=== PATIENT | female | born 1965 | race Caucasian/White ===

== ENCOUNTER 2016-09-15 07:32 | Emergency (ER) | payer OTHER ==
[~2016-09-15] VITALS: Ht 162.6 cm; Wt 90.0 kg
[~2016-09-15 07:32] MED LIST: ALBU18HF IH; LORATADINE PO; MECLIZINE PO; NAPR550T2 PO; OMEP20CA16 PO
[2016-09-15 07:40] VITALS: Ht 162.6 cm; Wt 90.0 kg
[2016-09-15 08:20] LABS: URINE BLOOD (Dip) POC Trace-intact (NEGATIVE)
--- NOTE | 2016-09-15 08:30 | ERD ---
ER Documentation Chief Complaint Date/Time DATE: 09/15/16 TIME: 08:27 Chief Complaint headcahe , neck pain , back pain s/p slip and fall yesterday HPI This 48-year-old female who presents to the emergency department today complaining of headache, neck and back pain after falling yesterday. Patient states that she was getting out of her car when she fell backwards. She is unsure why she fell. States she is unsure if she lost consciousness. States she has some dizziness. States she took Tylenol for the pain. Denies any medical history. Denies any fevers or chills, dysuria. ROS All systems reviewed and are negative except as per history of present illness. Medications Home Meds Active Scripts Docusate Sodium* (Colace*) 100 Mg Capsule, 100 MG PO TID, #30 CAP Prov:MAL MAYO PA-C 09/15/16 Cyclobenzaprine Hcl* (Cyclobenzaprine Hcl*) 10 Mg Tablet, 10 MG PO QHS, #7 TAB Prov:MAL MAYO PA-C 09/15/16 Hydrocodone/Acetaminophen (Muncy 5-325 Tablet) 1 Each Tablet, 1 TAB PO Q6H Y for PAIN, #12 TAB Prov:MAL MAYO PA-C 09/15/16 Nitrofurantoin Monohyd Macrocr* (Macrobid*) 100 Mg Capsr, 100 MG PO BID for 7 Days, CAP Prov:MAL MAYO PA-C 09/15/16 Reported Medications Albuterol Sulfate* (Ventolin HFA*) 18 Gm Hfa.aer.ad, 2 PUFF IH Q4H Y for WHEEZING AND RESP DISTRESS, EA 09/10/14 Naproxen* (Naproxen*) 550 Mg Tablet, 550 MG PO BID Y for PAIN, TAB 09/10/14 [Meclizine] No Conflict Check, PO 09/10/14 [Loratadine] No Conflict Check, PO 09/10/14 Omeprazole* (Omeprazole*) 20 Mg Capsule.dr, 20 MG PO DAILY, CAP 09/10/14 Allergies Allergies: Coded Allergies: Penicillins (Unverified Allergy, Unknown, 09/10/14) PMhx/Soc History of Surgery: Yes (INGUINAL HERNIA REPAIR, HYSTERECTOMY, UTERINE ABLATION , OVARY SURG) Anesthesia Reaction: No Hx Neurological Disorder: No Hx Respiratory Disorders: Yes (ASHTMA) Hx Cardiac Disorders: No Hx Alcohol Use: Yes (OCCASIONAL) Hx Substance Use: No Hx Tobacco Use: No Physical Exam Vitals Vital Signs Date Time Temp Pulse Resp B/P Pulse Ox O2 Delivery O2 Flow Rate FiO2 09/15/16 07:40 98.0 74 16 131/62 99 Physical Exam Const: No acute distress Head: Small posterior aspect occipital hematoma with evidence of abrasion. No lacerations. Eyes: Normal Conjunctiva. PERRLA. EOM intact. ENT: No hemotympanum. No epistaxis. Throat no erythema. Neck: Full range of motion..~ No meningismus. Tender to palpation midline and right-sided paraspinal Resp: Clear to auscultation bilaterally Cardio: Regular rate and rhythm, no murmurs Abd: Soft, non tender, non distended. Normal bowel sounds Skin: No petechiae or rashes Back: Lumbar and sacral spine midline tenderness and bilateral paraspinal tenderness. Pulses 2+. Distal neurovascularly intact. Negative straight leg raise. Ext: No cyanosis, or edema Neur: Awake and alert Psych: Normal Mood and Affect Result Diagram: 09/15/16 0840 09/15/16 0840 Results 24 hrs Laboratory Tests Test 09/15/16 08:20 09/15/16 08:40 Bedside Urine Blood Trace-intact Bedside Urine Glucose (UA) Negative Bedside Urine Ketones (LAB) Negative Bedside Urine Leukocyte Esterase (L 1+ Bedside Urine Nitrite (LAB) Negative Bedside Urine Protein (LAB) Negative Bedside Urine pH (LAB) 5.5 Alanine Aminotransferase (ALT/SGPT) 38IU/L Albumin 3.9g/dl Albumin/Globulin Ratio 1.08 Alkaline Phosphatase 164IU/L Anion Gap 16 Aspartate Amino Transf (AST/SGOT) 32IU/L Basophils # 0.010^3/ul Basophils % 0.5% Blood Morphology Comment Blood Urea Nitrogen 16mg/dl Calcium Level 9.1mg/dl Carbon Dioxide Level 28mmol/L Chloride Level 106mmol/L Creatinine 0.57mg/dl Direct Bilirubin 0.00mg/dl Eosinophils # 0.110^3/ul Eosinophils % 2.1% Globulin 3.60g/dl Glucose Level 100mg/dl Hematocrit 35.6% Hemoglobin 11.5g/dl Indirect Bilirubin 0.6mg/dl Lymphocytes # 2.010^3/ul Lymphocytes % 28.1% Mean Corpuscular Hemoglobin 25.2pg Mean Corpuscular Hemoglobin Concent 32.4g/dl Mean Corpuscular Volume 77.8fl Mean Platelet Volume 7.6fl Monocytes # 0.410^3/ul Monocytes % 5.5% Neutrophils # 4.610^3/ul Neutrophils % 63.8% Nucleated Red Blood Cells # 0.010^3/ul Nucleated Red Blood Cells % 0.0/100WBC Platelet Count 21950^3/UL Potassium Level 4.4mmol/L Red Blood Count 4.5710^6/ul Red Cell Distribution Width 14.3% Sodium Level 146mmol/L Total Bilirubin 0.6mg/dl Total Protein 7.5g/dl White Blood Count 7.110^3/ul Patient: DOUG NIETO : 1965 Age: 51 Sex: F MR #: [id number] DOS: 09/15/16 0000 Ordering MD: MAL MAYO PA-C Location: [facility], [facility] Room/Bed: PROCEDURE: CT head without Contrast CLINICAL INDICATION: Status post fall, dizziness, syncope, pain in back of head TECHNIQUE: Transaxial images were made through the head on a multi-slice scanner without intravenous contrast. Coronal and sagittal images were subsequently reformatted. One or more of the following dose reduction techniques were used: - Automated exposure control. - Adjustment of the mA and/or kV according to patient size. - Use of iterative reconstruction technique. Radiation dose: CTDIvol = 44.73 mGy; DLP = 630.20 mGy-cm. COMPARISON: None FINDINGS: The calvarium appears intact. The mastoid air cells and paranasal sinuses are well-aerated.. The ventricles are normal in size and there is no midline shift. No intracranial bleed, mass, or extra-axial fluid collection is identified. There is good sommer-white matter differentiation. IMPRESSION: Unremarkable noncontrast enhanced CT scan of the head. R Kanika, Physician Date Time Electronically viewed and signed by Physician Flavio on 09/15/2016 09:29 RH/ CC: MAL MAYO PA-C Patient: DOUG NIETO : 1965 Age: 51 Sex: F MR #: [id number] DOS: 09/15/16 0000 Ordering MD: MAL MAYO PA-C Location: [facility], [facility]–1983 Room/Bed: PROCEDURE: CT C-Spine without Contrast CLINICAL INDICATION: Fall TECHNIQUE: Transaxial images were obtained through the cervical spine on a multi sliced scanner without contrast. Sagittal and coronal re-formations were subsequently reformatted. One or more of the following dose reduction techniques were used: - Automated exposure control. - Adjustment of the mA and/or kV according to patient size. - Use of iterative reconstruction technique. Radiation dose: CTDIvol = 22.08 mGy; DLP = 394.54 mGy-cm. COMPARISON: None FINDINGS: Osseous structures: Appear intact with no fracture identified. There is a nonaggressive 4 mm lucency within the left anterior C4 vertebral body and a 3 mm nonaggressive hypodensity within the right superior posterior C5 vertebral body which may represent cysts. Alignment: There is straightening of the normal lordotic curvature to the cervical spine with no subluxation evident. Disk spaces, endplates, and facet joints: Are well maintained. No significant disk bulge or herniation is identified. There is no significant stenosis to the central canal hour to a nerve root canal. There is mild anterior spurring off the anterior endplates at C5-6. Soft tissues: Are unremarkable. IMPRESSION: 1. No cervical fracture or subluxation is evident. 2. Straightening of the normal lordotic curvature to the cervical spine with mild anterior spurring off the end plates is C5-C6. 3. Nonaggressive lucencies suspicious for cysts are evident. 1 measuring 4 mm is seen within the left anterior C4 vertebral body and 1 measuring 3 mm is seen within the right superior posterior C5 vertebral body. Physician Flavio Date Time Electronically viewed and signed by Physician Flavio on 09/15/2016 09:35 RH/ CC: MAL MAYO PA-C Patient: DOUG NIETO : 1965 Age: 51 Sex: F MR #: [id number] DOS: 09/15/16 0000 Ordering MD: MAL MAYO PA-C Location: [facility] Room/Bed: PROCEDURE: XR Lumbar Spine. CLINICAL INDICATION: Post fall. Low back pain. TECHNIQUE: Three views of the lumbar spine are available for review COMPARISON: None available FINDINGS: The normal lumbar lordosis is preserved. Alignment is intact. No acute fracture or dislocation is seen. The vertebral body heights are all normal. There are mild degenerative changes of lumbar spine, mainly at L5-S1. IMPRESSION: 1. No acute fracture or subluxation. 2. Mild degenerative changes of lumbar spine, most pronounced at L5-S1. RPTAT: HFN .Tyler Deng MD, MD Date Time Electronically viewed and signed by .Tyler Deng MD, MD on 09/15/2016 10: 14 .N/ CC: MAL MAYO PA-C Patient: DOUG NIETO : 1965 Age: 51 Sex: F MR #: [id number] DOS: 09/15/16 0000 Ordering MD: MAL MAYO PA-C Location: [facility] Room/Bed: PROCEDURE: XR Sacrum and Coccyx. CLINICAL INDICATION: Sacrococcygeal pain TECHNIQUE: 3 views of the sacrum and coccyx were performed. COMPARISON: No prior studies are available for comparison. FINDINGS: There is normal sacral and coccygeal mineralization and alignment. No fracture or subluxation is seen. The sacroiliac joints appear normal. The soft tissues are unremarkable. The coccygeal elements are intact and in normal alignment. No fracture or dislocation is seen. 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 IMPRESSION: 1. Unremarkable x-ray examination of the sacrum and coccyx. RPTAT: HMJB .Judd Bustos MD, Date Time Electronically viewed and signed by .Judd Bustos MD, on 09/15/2016 10:08 .B/ CC: MAL MAYO PA-C Procedures/MDM This is a 51-year-old female who presents to the emergency department today after sustaining a fall yesterday. Patient was unsure if she lost consciousness and she was unable to tell me that this was a mechanical fall and therefore did obtain laboratory work as well as imaging and an EKG EKG read and interpreted by Dr. Torrez rate [address] elevation. No QT prolongation. Normal sinus rhythm. Low suspicion for acute OH, PE, pericarditis. Laboratory work no elevated white blood cell count. Patient's hemoglobin and hematocrit is mildly decreased. Sodium is mildly elevated otherwise electro lites are within normal limits. Liver functions within normal limits. Glucose is within normal limits. UA shows 1+ leukocyte Estrace Urine test is negative Head CT noncontrast is unremarkable. No evidence of intracranial bleed, mass effect or midline shift. Cervical spine CT shows no cervical fracture subluxation. There is straightening of the normal lordotic curve with mild anterior spurring of endplate of C5 and C6. There are not aggressive lucency suspicious for cyst evident. One measures 4 L seen within the left anterior C4 vertebral body and one measuring 3 mm seen within the right. Posterior C5 vertebral body. Lumbar spine x-rays showed no acute fracture or subluxation. There is mild degenerative changes of the lumbar spine most pronounced at L5 and S1. The [place] body heights are all normal. Sacrum and coccyx are unremarkable. There is degenerative osteoarthrosis of the pubis symphysis. Soft tissues are unremarkable. There is normal alignment. I have explained all result to the patient. Patient had a fall of uncertain etiology however it may be related to urinary tract infection or symptoms of feeling dizzy. The suspicion for cardiac cause. Patient is afebrile and otherwise well-appearing. She is not hypotensive. I have low suspicion for anemia or orthostatic hypotension. Patient declined stronger pain medication here in the emergency department as she stated that she needs to drive to get to her work this morning. Patient was given a prescription for Muncy, Colace, Flexeril and Macrobid to treat her urinary tract infection. At this time the patient is stable for discharge and outpatient management. Patient should follow up with their PCP in the next 1-2 days. They may return to the emergency department sooner for any persistent or worsening of symptoms. Patient understood and agreed with the plan. Discussed the patient with Dr. Torrez and he is in agreement with the plan. Departure Diagnosis: Primary Impression: Fall Encounter type: initial encounter Qualified Code: W19.XXXA - Fall, initial encounter Additional Impression: UTI (urinary tract infection) Urinary tract infection type: site unspecified Hematuria presence: with hematuria Qualified Code: N39.0 - Urinary tract infection with hematuria, site unspecified Condition: Fair MAL MAYO PA-C Sep 15, 2016 08:30
[2016-09-15 09:16] LABS: BASOPHILS % 0.5 % (0.0-2.0); EOSINOPHILS # 0.1 10^3/ul (0.0-0.5); EOSINOPHILS % 2.1 % (0.0-7.0); HEMATOCRIT 35.6 % (37.0-47.0); HEMOGLOBIN 11.5 g/dl (12.0-16.0); LYMPHOCYTES % 28.1 % (15.0-51.0); MEAN CORPUSCULAR HEMOGLOBIN 25.2 pg (29.0-33.0); MEAN CORPUSCULAR HGB CONC 32.4 g/dl (32.0-37.0); MEAN CORPUSCULAR VOLUME 77.8 fl (82.0-101.0); MEAN PLATELET VOLUME 7.6 fl (7.4-10.4); MONOCYTE # 0.4 10^3/ul (0.3-0.9); MONOCYTES % 5.5 % (0.0-11.0); NEUTROPHIL # 4.6 10^3/ul (1.6-7.5); NEUTROPHILS % 63.8 % (39.0-77.0); PLATELET COUNT 284 10^3/UL (140-440); RED BLOOD COUNT 4.57 10^6/ul (4.20-5.40); RED CELL DISTRIBUTION WIDTH 14.3 % (11.5-14.5); UNCORRECTED WBC 7.1 10^3/ul (4.8-10.8); WHITE BLOOD COUNT 7.1 10^3/ul (4.8-10.8)
[2016-09-15 09:18] LABS: ALBUMIN 3.9 g/dl (3.3-4.9)
[2016-09-15 09:19] LABS: POTASSIUM 4.4 mmol/L (3.5-5.1)
[2016-09-15 09:20] LABS: CONDITION 1; LH ANALYZER COMMENTS 1
[2016-09-15 09:21] LABS: ALBUMIN/GLOBULIN RATIO 1.08; BILIRUBIN,INDIRECT 0.6 mg/dl (0-1.1); BILIRUBIN,TOTAL 0.6 mg/dl (0.2-1.3); CREATININE 0.57 mg/dl (0.44-1.00); TOTAL PROTEIN 7.5 g/dl (6.1-8.1)
[2016-09-15 09:22] LABS: CALCIUM 9.1 mg/dl (8.4-10.2)
--- NOTE | 2016-09-15 09:29 | RADRPT ---
PROCEDURE: CT head without Contrast CLINICAL INDICATION: Status post fall, dizziness, syncope, pain in back of head TECHNIQUE: Transaxial images were made through the head on a multi-slice scanner without intraveno us contrast. Coronal and sagittal images were subsequently reformatted. One or more of the following dose reduction techniques were used: - Automated exposure control. - Adjustment of the mA and/or kV according to patient size. - Use of iterative reconstruction technique. Radiation dose: CTDIvol = 44.73 mGy; DLP = 630.20 mGy-cm. COMPARISON: None FINDINGS: The calvarium appears intact. The mastoid air cells and paranasal sinuses are well-aerated.. The ventricles are normal in size and there is no midline shift. No intracranial bleed, mass, or extra-axial fluid collection is identified. There is good sommer-white matter differentiation. IMPRESSION: Unremarkable noncontrast enhanced CT scan of the head. Physician Flavio Date Time Electronically viewed and signed by Physician Flavio on 09/15/2016 09:29 /
--- NOTE | 2016-09-15 09:36 | RADRPT ---
PROCEDURE: CT C-Spine without Contrast CLINICAL INDICATION: Fall TECHNIQUE: Transaxial images were obtained through the cervical spine on a multi sliced scanner wit hout contrast. Sagittal and coronal re-formations were subsequently reformatted. One or more of the following dose reduction techniques were used: - Automated exposure control. - Adjustment of the mA and/or kV according to patient size. - Use of iterative reconstruction technique. Radiation dose: CTDIvol = 22.08 mGy; DLP = 394.54 mGy-cm. COMPARISON: None FINDINGS: Osseous structures: Appear intact with no fracture identified. There is a nonaggressive 4 mm lucency within the left anterior C4 vertebral body and a 3 mm nonaggressive hypodensity within the right muro perior posterior C5 vertebral body which may represent cysts. Alignment: There is straightening of the normal lordotic curvature to the cervical spine with no sub luxation evident. Disk spaces, endplates, and facet joints: Are well maintained. No significant disk bulge or herniat ion is identified. There is no significant stenosis to the central canal hour to a nerve root canal. There is mild anterior spurring off the anterior endplates at C5-6. Soft tissues: Are unremarkable. IMPRESSION: 1. No cervical fracture or subluxation is evident. 2. Straightening of the normal lordotic curvature to the cervical spine with mild anterior spurring off the end plates is C5-C6. 3. Nonaggressive lucencies suspicious for cysts are evident. 1 measuring 4 mm is seen within the l eft anterior C4 vertebral body and 1 measuring 3 mm is seen within the right superior posterior C5 v ertebral body. Physician Flavio Date Time Electronically viewed and signed by Physician Flavio on 09/15/2016 09:35 /
--- NOTE | 2016-09-15 10:08 | RADRPT ---
PROCEDURE: XR Sacrum and Coccyx. CLINICAL INDICATION: Sacrococcygeal pain TECHNIQUE: 3 views of the sacrum and coccyx were performed. COMPARISON: No prior studies are available for comparison. FINDINGS: There is normal sacral and coccygeal mineralization and alignment. No fracture or subluxation is see n. The sacroiliac joints appear normal. The soft tissues are unremarkable. The coccygeal elements ar e intact and in normal alignment. No fracture or dislocation is seen. Degenerative osteoarthrosis o f the pubis symphysis is identified. IMPRESSION: 1. Unremarkable x-ray examination of the sacrum and coccyx. RPTAT: HMJB .Judd Busots MD, Date Time Electronically viewed and signed by .Judd Bustos MD, on 09/15/2016 10:08 .B/
--- NOTE | 2016-09-15 10:14 | RADRPT ---
PROCEDURE: XR Lumbar Spine. CLINICAL INDICATION: Post fall. Low back pain. TECHNIQUE: Three views of the lumbar spine are available for review COMPARISON: None available FINDINGS: The normal lumbar lordosis is preserved. Alignment is intact. No acute fracture or dislocation is seen. The vertebral body heights are all normal. There are mild degenerative changes of lumbar spine, main ly at L5-S1. IMPRESSION: 1. No acute fracture or subluxation. 2. Mild degenerative changes of lumbar spine, most pronounced at L5-S1. RPTAT: HFN .Tyler Deng MD, Date Time Electronically viewed and signed by .Tyler Deng MD, on 09/15/2016 10:14 .N/
[2016-09-15] MEDS ORDERED: NITR-58 PO (10:33)
[2016-09-15] MEDS ORDERED: HYDR-906 PO (10:34)
[2016-09-15] MEDS ORDERED: DOCU-144 PO (10:35)
[2016-09-15] MEDS ORDERED: CYCL-319 PO (10:35)
== END 2016-09-15 10:44 | disposition home or self-care (01) ==
LOC: FTE 07:32
DX: S09.90XA Unspecified injury of head, initial encounter (principal); S19.9XXA Unspecified injury of neck, initial encounter; S39.92XA Unspecified injury of lower back, initial encounter; N39.0 Urinary tract infection, site not specified; J45.909 Unspecified asthma, uncomplicated; R42 Dizziness and giddiness; W18.39XA Other fall on same level, initial encounter; Y92.810 Car as the place of occurrence of the external cause
CPT/HCPCS: 70450; 72100; 72125; 72220; 80053; 81003; 85025; 93005